=== PATIENT | male | born 1965 | race Caucasian/White ===

== ENCOUNTER 2021-04-14 06:27 | Emergency (ER) | payer BC ==
--- NOTE | 2021-04-14 07:03 | EDM.PDOC ---
ED HPI GENERAL MEDICAL PROBLEM - General Chief Complaint: Chest Pain Stated Complaint: DISCOMFORT IN CHEST, HEARTBEAT? Time Seen by Provider: 04/14/21 07:05 Source of Information: Reports: Patient, Family, RN. Denies: Old Records History Limitations: Reports: Other (no old records) - History of Present Illness INITIAL COMMENTS - FREE TEXT/NARRATIVE: 56 yo male presents with his for evaluation. He lives in [place], but has a cabin locally. Has a pHx of POTS and is not on tx for this as he does not have a primary care provider. He generally goes to the ER in [place], [place] when he needs medical care. For the past 4 d he has been more aware of his heart beating. He reports some stomach upset. He has been awakening from sleep more often. He and other family members have anxiety, his father has afib, and he and some of his children have POTS. He has been trying to drink more and took some CBD this AM which usually helps him, but today it didn't seem to. Now that he is here he is feeling better. He has been working away from home more and eating in unhealthy restaurants so his thinks he is just under stress and that this may be anxiety. The patient says he admits his sx's could be from any one of the 3 things he mentions as concerns today, he cannot always tell them apart. He is returning to [place] tomorrow evening. Onset: Gradual Onset Date: 04/10/21 Duration: Day(s):, Waxing/Waning Location: Reports: Generalized Quality: Reports: Other (pain is not reported) Severity: Mild Improves with: Reports: Other (unsure) Worsens with: Reports: Other (? stress, not eating or sleeping well) Context: Reports: Other (See HPI) Associated Symptoms: Reports: Malaise, Other (more aware of heart beat, some indigestion) Treatments PHARMACOGENETICIST: Reports: Other (see below) (CBD and fluids) Chest Pain Score (Numeric/FACES): 3 - Related Data Allergies Allergy/AdvReac Type Severity Reaction Status Date / Time ibuprofen [From Motrin] Allergy Pain Verified 04/14/21 06:48 Home Meds: Home Meds NK [No Known Home Meds] 04/14/21 [History] Past Medical History HEENT History: Reports: Impaired Vision Cardiovascular History: Reports: Other (See Below) Other Cardiovascular History: POTS Oncologic (Cancer) History: Reports: Other (See Below) Other Oncologic History: skin cancer Dermatologic History: Reports: Other (See Below) Other Dermatologic History: treated for skin cancer - Infectious Disease History Infectious Disease History: Reports: Chicken Pox - Past Surgical History GI Surgical History: Reports: Hernia, Inguinal Social & Family History - Tobacco Use Tobacco Use Status *Q: Current Every Day Tobacco User Years of Tobacco use: 5 Packs/Tins Daily: 0.5 - Caffeine Use Caffeine Use: Reports: None - Recreational Drug Use Recreational Drug Type: Reports: Other (see below) Other Recreational Drug Type: CBD oil ED ROS GENERAL - Review of Systems Review Of Systems: See Below Constitutional: Reports: No Symptoms HEENT: Reports: No Symptoms Respiratory: Reports: No Symptoms Cardiovascular: Reports: No Symptoms Endocrine: Reports: No Symptoms GI/Abdominal: Reports: No Symptoms : Reports: No Symptoms Musculoskeletal: Reports: No Symptoms Skin: Reports: No Symptoms Neurological: Reports: No Symptoms Psychiatric: Reports: Anxiety (repeats himself a few times in the short time I was in the room. ) ED EXAM, GENERAL - Physical Exam Exam: See Below Exam Limited By: No Limitations General Appearance: Alert, WD/WN, No Apparent Distress Eye Exam: Bilateral Eye: Normal Inspection Ears: Normal External Exam, Normal Canal, Hearing Grossly Normal Ear Exam: Bilateral Ear: Auricle Normal, Canal Normal Nose: Normal Inspection, No Blood Throat/Mouth: Normal Inspection, Normal Lips, Normal Oropharynx, Normal Voice, No Airway Compromise Head: Atraumatic, Normocephalic Neck: Normal Inspection Respiratory/Chest: No Respiratory Distress, Lungs Clear, Normal Breath Sounds, No Accessory Muscle Use Cardiovascular: Regular Rate, Rhythm, No Edema. No: Irregularly Irregular GI/Abdominal: Soft, Non-Tender, No Distention. No: Distended Back Exam: Normal Inspection Extremities: Normal Inspection, Normal Range of Motion, Non-Tender, No Pedal Ed eddie Neurological: Alert, Oriented, CN II-XII Intact, Normal Cognition, No Motor/Sensory Deficits Psychiatric: Normal Affect, Normal Mood Skin Exam: Warm, Dry, Intact, Normal Color, No Rash Course - Vital Signs Last Recorded V/S: Last Vital Signs Temp 36.7 C 04/14/21 06:46 Pulse 65 04/14/21 06:46 Resp 16 04/14/21 06:46 BP 142/86 H 04/14/21 06:46 Pulse Ox 97 04/14/21 06:46 Orthostatic Blood Pressure [ 125/83 Standing] Orthostatic Blood Pressure [ 139/88 Sitting] Orthostatic Blood Pressure [ 132/80 Supine] - Orders/Labs/Meds Meds: Medications Discontinued Medications Generic Name Dose Route Start Last Admin Trade Name Artem PRN Reason Stop Dose Admin Lorazepam 0.5 mg 04/14/21 07:30 04/14/21 07:38 Lorazepam 0.5 Mg Tab PO 04/14/21 07:31 0.5 mg ONETIME ONE Administration - Re-Assessments/Exams Free Text/Narrative Re-Assessment/Exam: 04/14/21 08:08 Feels quite relaxed and improved after the lorazepam 0.5 mg Departure - Departure Time of Disposition: 08:10 Disposition: Home, Self-Care 01 Condition: Good Clinical Impression: Anxiety Instructions: Managing Anxiety, Adult Referrals: PCP,None [Primary Care Provider] - Forms: ED Department Discharge Additional Instructions: Take 1/2 to 1 tablet of the 0.5 mg lorazepam as needed for anxiety symptoms. Get established with a primary care provider as time allows. Return as needed. Sepsis Event Note (ED) - Evaluation Sepsis Screening Result: No Definite Risk - Focused Exam Vital Signs: Vital Signs Temp Pulse Resp BP Pulse Ox 04/14/21 06:46 36.7 C 65 16 142/86 H 97
[2021-04-14] MEDS ORDERED: LORazepam 0.5 MG Tab PO ONE (07:30)
== END 2021-04-14 08:19 | disposition home or self-care (01) ==
LOC: JP.ED 06:27
DX: F41.9 Anxiety disorder, unspecified (principal); Z88.6 Allergy status to analgesic agent; Z72.0 Tobacco use
CPT/HCPCS: 99283; A9270